=== PATIENT | male | born 1990 | race Caucasian/White ===

== ENCOUNTER 2016-10-14 12:04 | Inpatient (IN) | payer OTHER ==
[2016-10-14 14:22] VITALS: BMI 34.2
--- NOTE | 2016-10-14 15:32 | HP ---
COWS - Scale Resting Pulse: 0= [place] 80 or Below Sweatin=Flushed/Facial Moisture Restless Observation: 1= Difficult to Sit Still Pupil Size: 2= Moderately Dilated Bone or Joint Aches: 2= Severe Diffuse Aches Runny Nose/ Eye Tearin= Runny Nose/Eyes GI Upset > 30mins: 2= Nausea/Diarrhea Tremor Observation: 2= Slight Tremor Visible Yawning Observation: 1= 1-2x During Session Anxiety or Irritability: 2=Irritable/Anxious Goose Flesh Skin: 0=Smooth Skin COWS Score: 16 Admission ROS S - HPI Chief Complaint: WITHDRAWAL SX. Allergies/Adverse Reactions: Allergies Allergy/AdvReac Type Severity Reaction Status Date / Time Penicillins Allergy Severe Hives Verified 10/14/16 14:43 History of Present Illness: 26 Y/O MAN WITH A LONG HX. OF DRUG DEPENDENCE IS ADMITTED FOR DETOX.PT. HAS BEEN IN PREVIOUS DETOX FOLLOWED BY 10 MONTHS DRUG FREE,WHILE ATTENDING SELF HELP GROUP. Exam Limitations: No Limitations - Ebola screening Have you traveled outside of the country in the last 21 days: No (N) Have you had contact with anyone from an Ebola affected area: No Have you been sick,other than usual withdrawal symptoms: No Do you have a fever: No - Review of Systems Constitutional: Diaphoresis EENT: reports: Nose Congestion Respiratory: reports: No Symptoms reported Cardiac: reports: No Symptoms Reported GI: reports: Diarrhea, Abdominal cramping : reports: No Symptoms Reported Musculoskeletal: reports: Back Pain, Joint Pain Integumentary: reports: Sweating Neuro: reports: Headache Endocrine: reports: No Symptoms Reported Hematology: reports: No Symptoms Reported Psychiatric: reports: No Sypmtoms Reported Other Systems: Reviewed and Negative Patient History - Patient Medical History Hx Anemia: No Hx Asthma: No Hx Chronic Obstructive Pulmonary Disease (COPD): No Hx Cancer: No Hx Cardiac Disorders: No Hx Congestive Heart Failure: No Hx Hypertension: No Hx Hypercholesterolemia: No Hx Pacemaker: No HX Cerebrovascular Accident: No Hx Seizures: No Hx Dementia: No Hx Diabetes: No Hx Gastrointestinal Disorders: No Hx Liver Disease: No Hx Genitourinary Disorders: No Hx Sexually Transmitted Disorders: No Hx Renal Disease (ESRD): No Hx Thyroid Disease: No Hx Human Immunodeficiency Virus (HIV): No Hx Hepatitis C: No Hx Depression: No Hx Suicide Attempt: No Hx Bipolar Disorder: No Hx Schizophrenia: No - Patient Surgical History Past Surgical History: No Hx Neurologic Surgery: No Hx Cataract Extraction: No Hx Cardiac Surgery: No Hx Lung Surgery: No Hx Breast Surgery: No Hx Breast Biopsy: No Hx Abdominal Surgery: No Hx Appendectomy: No Hx Cholecystectomy: No Hx Genitourinary Surgery: No Hx Section: No Hx Orthopedic Surgery: No (fx. ankle CAST WAS APPLIED) Anesthesia Reaction: No - PPD History Previous Implant?: Yes Implanted On Prior [facility] Admission?: Yes Date: 10/25/15 PPD to be Administered?: Yes - Smoking Cessation Smoking history: Current every day smoker Have you smoked in the past 12 months: Yes Aproximately how many cigarettes per day: 8 Cigars Per Day: 0 Hx Chewing Tobacco Use: No Initiated information on smoking cessation: Yes 'Breaking Loose' booklet given: 10/14/16 - Substance & Tx. History Hx Alcohol Use: No Hx Substance Use: Yes Substance Use Type: Heroin Hx Substance Use Treatment: Yes (DETOX) - Substances Abused Heroin Route: Injection Frequency: Daily Amount used: $80 Age of first use: 23 Date of Last Use: 10/13/16 Family Disease History - Family Disease History Family Disease History: Heart Disease: Brother, [place]: Father (OF PROSTATE) Admission Physical Exam [facility] - Vital Signs Vital Signs: Vital Signs - 24 hr 10/14/16 14:21 Temperature 99.4 F Pulse Rate 66 Respiratory 20 Rate Blood Pressure 128/84 - Physical General Appearance: Yes: Sweating, Anxious HEENTM: Yes: Nasal Congestion, Rhinorrhea Respiratory: Yes: Chest Non-Tender, Lungs Clear, Normal Breath Sounds Neck: Yes: Supple Breast: Yes: Breast Exam Deferred Cardiology: Yes: Regular Rhythm, Regular Rate, S1, S2 Abdominal: Yes: Normal Bowel Sounds, Non Tender, Soft Genitourinary: Yes: Within Normal Limits Back: Yes: Within Normal Limits Musculoskeletal: Yes: Within Normal Limits Extremities: Yes: Tremors Neurological: Yes: Fully Oriented, Alert Integumentary: Yes: Diaphoresis Lymphatic: Yes: Within Normal Limits - Diagnostic (1) Opioid dependence with withdrawal Current Visit: Yes Status: Acute Cleared for Admission S - Detox or Rehab [facility] Level of Care: Medically Managed Detox Regimen/Protocol: Methadone S Breath Alcohol Content Breath Alcohol Content: 0 Urine Drug Screen - Results Drug Screen Negative: No Urine Drug Screen Results: OPI-Opiates
[2016-10-14] MEDS ORDERED: guaiFENesin/D-METHORPHAN HB 10 ML UNIT-DOSE CUPS PO PRN (15:38)
[2016-10-14] MEDS ORDERED: MAGNESIUM CITRATE 300 ML BOTTLE PO PRN (15:38)
[2016-10-14] MEDS ORDERED: diphenhydrAMINE HCL 50 MG CAPSULE PO PRN (15:38)
[2016-10-14] MEDS ORDERED: MAG HYDROX/AL HYDROX/SIMETH 30 ML UNIT-DOSE CUP PO PRN (15:38)
[2016-10-14] MEDS ORDERED: ACETAMINOPHEN 325 MG TABLET (FP) PO PRN (15:38)
[2016-10-14] MEDS ORDERED: LOPERAMIDE HCL 2 MG CAPSULE PO PRN (15:38)
[2016-10-14] MEDS ORDERED: NICOTINE POLACRILEX 2 MG GUM BC PRN (15:38)
[2016-10-14] MEDS ORDERED: MAGNESIUM HYDROX 2400MG/30ML ORAL SUSPENSION 30 ML CUP PO PRN (15:38)
[2016-10-14] MEDS ORDERED: MENTHOL/PHENOL 1 EACH UD MM PRN (15:38)
[2016-10-14] MEDS ORDERED: IBUPROFEN 400 MG TABLET (FP) PO PRN (15:38)
[2016-10-14] MEDS ORDERED: P-EPHED 60MG/TRIPROLIDI 2.5MG TABLET PO PRN (15:38)
[2016-10-14] MEDS ORDERED: METHADONE HCL 10 MG TABLET (FOR DETOX USE ONLY) PO ONE ×2 (16:00→23:00)
[2016-10-14] MEDS: diazePAM 5 MG TABLET PO PRN (18:17)
[2016-10-14] MEDS: NICOTINE 21 MG/24 HOURS TOPICAL PATCH TD SCH (18:20)
[2016-10-14] MEDS: THIAMINE HCL 100 MG TABLET (FP) PO SCH (22:24)
[2016-10-15] MEDS: diazePAM 5 MG TABLET PO PRN ×4 (05:21→18:46)
[2016-10-15] MEDS ORDERED: METHADONE HCL 10 MG TABLET (FOR DETOX USE ONLY) PO ONE (10:00)
[2016-10-15] MEDS: PRENATAL VITAMINS W/ FOLIC ACID TABLET (FP) PO SCH (10:17)
[2016-10-15] MEDS: NICOTINE 21 MG/24 HOURS TOPICAL PATCH TD SCH (10:18)
--- NOTE | 2016-10-15 10:19 | PN ---
BHS COWS - Scale Resting Pulse: 0= [place] 80 or Below Sweatin=Flushed/Facial Moisture Restless Observation: 3= Extraneous Movement Pupil Size: 1= Pupils >than Normal Bone or Joint Aches: 2= Severe Diffuse Aches Runny Nose/ Eye Tearin= Runny Nose/Eyes GI Upset > 30mins: 2= Nausea/Diarrhea Tremor Observation of Outstretched Hands: 2= Slight Tremor Visible Yawning Observation: 1= 1-2x During Session Anxiety or Irritability: 2=Irritable/Anxious Goose Flesh Skin: 0=Smooth Skin COWS Score: 17 BHS Progress Note (SOAP) Subjective: ALERT,IRRITABLE,ANXIOUS,TREMOR,PAIN IN THE BODY AND BACK,INTERRUPTED SLEEP Objective: 10/15/16 10:17 Vital Signs Temperature 97 F L 10/15/16 06:37 Pulse Rate 61 10/15/16 06:37 Respiratory Rate 16 10/15/16 06:37 Blood Pressure 128/87 10/15/16 06:37 O2 Sat by Pulse Oximetry (%) EKG NSR WITH SINUS ARRHYTHMIA NORMAL ECG LABS PENDING Assessment: 10/15/16 10:18 WITHDRAWAL SYMPTOM Plan: CONTINUE DETOX
[2016-10-15 11:05] LABS: MCH 28.5 pg (25.7-33.7); MCHC 33.7 g/dl (32.0-35.9); MEAN CELL VOLUME 84.6 fl (80-96); MEAN PLT VOLUME 9.7 fl (7.5-11.1); PLATELET COUNT 202 K/MM3 (134-434); RDW 14.7 % (11.9-15.9); WHITE BLOOD COUNT 6.4 K/mm3 (4.0-10.0)
[2016-10-15 11:41] LABS: ALBUMIN 3.5 g/dl (3.4-5.0); ALK PHOS 84 U/L (45-117); ANION GAP 6 (8-16); BILIRUBIN,TOTAL 0.8 mg/dL (0.2-1.0); CO2 28 mmol/L (21-32); CREATININE 0.9 mg/dL (0.7-1.3); GLUCOSE,RANDOM 89 mg/dL (74-106); SGOT/AST 11 U/L (15-37); SGPT/ALT 15 U/L (12-78); TOT PROT 7.5 g/dl (6.4-8.2)
[2016-10-15 11:43] LABS: HIV 1 & 2 AB NEGATIVE; HIV 1 AGp24 NEGATIVE
[2016-10-15] MEDS ORDERED: INFLUENZA VACCINE 45 MCG/0.5 ML (MDV 16-17) IM ONE (12:00)
--- NOTE | 2016-10-15 14:31 | CONSULT ---
[facility] Psychiatric Consult - Data Date of interview: 10/15/16 Admission source: [facility] Identifying data: Readmission to [facility] for this 26 y/o male seeking detox treatment on for heroin and cocaine dependence.Patient is single without children,domiciled and unemployed.Recently lost his job. Substance Abuse History: - Smoking Cessation. Smoking history: Current every day smoker. Have you smoked in the past 12 months: Yes. Aproximately how many cigarettes per day: 8. Cigars Per Day: 0. Hx Chewing Tobacco Use: No. Initiated information on smoking cessation: Yes. 'Breaking Loose' booklet given : 10/14/16. - Substance & Tx. History. Hx Alcohol Use: No. Hx Substance Use: Yes. Substance Use Type: Heroin. Hx Substance Use Treatment: Yes (DETOX). - Substances Abused. Heroin. Route: Injection. Frequency: Daily. Amount used: $80. Age of first use: 23. Date of Last Use: 10/13/16. Confirmed by patient. Medical History: Patient endorses good general health. Psychiatric History: Patient denies. Physical/Sexual Abuse/Trauma History: Patient denies. Additional Comment: Urine Drug Screen Results: OPI-Opiates.Noted. Mental Status Exam - Mental Status Exam Alert and Oriented to: Time, Place, Person Cognitive Function: Good Patient Appearance: Well Groomed Mood: Hopeful, Euthymic Affect: Appropriate, Normal Range Patient Behavior: Appropriate, Cooperative Speech Pattern: Clear Voice Loudness: Normal Thought Process: Goal Oriented Thought Disorder: Not Present Hallucinations: Denies Suicidal Ideation: Denies Homicidal Ideation: Denies Insight/Judgement: Fair Sleep: Poorly, Difficulty falling asleep Appetite: Good Muscle strength/Tone: Normal Gait/Station: Normal Psychiatric Findings - Problem List ([place] 1, 2,3) (1) Opioid dependence with withdrawal Current Visit: Yes Status: Acute (2) Obesity Current Visit: Yes Status: Chronic Qualifiers: Obesity type: unspecified obesity type Obesity severity: unspecified obesity severity Qualified Code(s): E66.9 - Obesity, unspecified (3) Insomnia Current Visit: Yes Status: Chronic - Initial Treatment Plan Initial Treatment Plan: Psychoeducation.Detoxification.Zolpidem 10 mg po hs prn.Patient is informed of risk of parasomnias.He agrees with plan.Observation.
[2016-10-15 21:49] LABS: URINE APPEARANCE SLCLOUDY; URINE BILIRUBIN NEGATIVE (NEGATIVE); URINE BLOOD NEGATIVE (NEGATIVE); URINE COLOR YELLOW; URINE GLUCOSE (UA) NEGATIVE (NEGATIVE); URINE KETONE NEGATIVE (NEGATIVE); URINE NITRITE NEGATIVE (NEGATIVE); URINE PROTEIN NEGATIVE (NEGATIVE); URINE UROBILINOGEN NEGATIVE E.U./dl (0.2-1.0)
[2016-10-15 21:51] LABS: URINE LEUK ESTERASE 1+ (NEGATIVE)
[2016-10-15 21:53] LABS: URINE MUCUS FEW; URINE RBC 4 /hpf (0-3); URINE WBC 12 /hpf (3-5)
[2016-10-15] MEDS: ZOLPIDEM TARTRATE 10 MG TABLET (PARK CARE ONLY) PO PRN (22:24)
[2016-10-15] MEDS: THIAMINE HCL 100 MG TABLET (FP) PO SCH (22:24)
[2016-10-16] MEDS ORDERED: METHADONE HCL 5 MG TABLET (FOR DETOX USE ONLY) PO ONE (10:00)
--- NOTE | 2016-10-16 10:01 | PN ---
S COWS - Scale Resting Pulse: 0= [place] 80 or Below Sweatin=Flushed/Facial Moisture Restless Observation: 3= Extraneous Movement Pupil Size: 1= Pupils >than Normal Bone or Joint Aches: 2= Severe Diffuse Aches Runny Nose/ Eye Tearin= Runny Nose/Eyes GI Upset > 30mins: 2= Nausea/Diarrhea Tremor Observation of Outstretched Hands: 2= Slight Tremor Visible Yawning Observation: 1= 1-2x During Session Anxiety or Irritability: 2=Irritable/Anxious Goose Flesh Skin: 0=Smooth Skin COWS Score: 17 BHS Progress Note (SOAP) Subjective: ALERT,IRRITABLE,ANXIOUS,PAIN IN THE BODY AND BACK,TREMOR,INTERRUPTED SLEEP Objective: 10/16/16 09:59 Vital Signs Temperature 98.2 F 10/16/16 09:34 Pulse Rate 79 10/16/16 09:34 Respiratory Rate 18 10/16/16 09:34 Blood Pressure 126/83 10/16/16 09:34 O2 Sat by Pulse Oximetry (%) Laboratory Last Values WBC 6.4 K/mm3 (4.0-10.0) D 10/15/16 06:30 RBC 4.28 M/mm3 (4.00-5.60) 10/15/16 06:30 Hgb 12.2 GM/dL (11.7-16.9) D 10/15/16 06:30 Hct 36.2 % (35.4-49) 10/15/16 06:30 MCV 84.6 fl (80-96) 10/15/16 06:30 MCHC 33.7 g/dl (32.0-35.9) 10/15/16 06:30 RDW 14.7 % (11.9-15.9) D 10/15/16 06:30 Plt Count 202 K/MM3 (134-434) 10/15/16 06:30 MPV 9.7 fl (7.5-11.1) 10/15/16 06:30 Sodium 142 mmol/L (136-145) 10/15/16 06:30 Potassium 4.3 mmol/L (3.5-5.1) 10/15/16 06:30 Chloride 108 mmol/L (98-107) H 10/15/16 06:30 Carbon Dioxide 28 mmol/L (21-32) 10/15/16 06:30 Anion Gap 6 (8-16) L 10/15/16 06:30 BUN 9 mg/dL (7-18) 10/15/16 06:30 Creatinine 0.9 mg/dL (0.7-1.3) 10/15/16 06:30 Creat Clearance w eGFR > 60 (>60) 10/15/16 06:30 Random Glucose 89 mg/dL (74-106) 10/15/16 06:30 Calcium 9.0 mg/dL (8.5-10.1) 10/15/16 06:30 Total Bilirubin 0.8 mg/dL (0.2-1.0) 10/15/16 06:30 AST 11 U/L (15-37) L D 10/15/16 06:30 ALT 15 U/L (12-78) D 10/15/16 06:30 Alkaline Phosphatase 84 U/L (45-117) 10/15/16 06:30 Total Protein 7.5 g/dl (6.4-8.2) 10/15/16 06:30 Albumin 3.5 g/dl (3.4-5.0) 10/15/16 06:30 Urine Color Yellow 10/15/16 21:39 Urine Appearance Slcloudy 10/15/16 21:39 Urine pH 5.0 (5.0-8.0) 10/15/16 21:39 Ur Specific [place] 1.017 (1.001-1.035) 10/15/16 21:39 Urine Protein Negative (NEGATIVE) 10/15/16 21:39 Urine Glucose (UA) Negative (NEGATIVE) 10/15/16 21:39 Urine Ketones Negative (NEGATIVE) 10/15/16 21:39 Urine Blood Negative (NEGATIVE) 10/15/16 21:39 Urine Nitrite Negative (NEGATIVE) 10/15/16 21:39 Urine Bilirubin Negative (NEGATIVE) 10/15/16 21:39 Urine Urobilinogen Negative E.U./dl (0.2-1.0) 10/15/16 21:39 Ur Leukocyte Esterase 1+ (NEGATIVE) H 10/15/16 21:39 Urine RBC 4 /hpf (0-3) 10/15/16 21:39 Urine WBC 12 /hpf (3-5) 10/15/16 21:39 Ur Epithelial Cells Rare /hpf (FEW) 10/15/16 21:39 Urine Mucus Few 10/15/16 21:39 RPR Titer Nonreactive (NONREACTIVE) 10/15/16 06:30 HIV 1&2 Antibody Screen Negative 10/14/16 06:30 HIV P24 Antigen Negative 10/14/16 06:30 Assessment: 10/16/16 10:00 WITHDRAWAL SYMPTOM Plan: CONTINUE DETOX
[2016-10-16] MEDS: diazePAM 5 MG TABLET PO PRN ×3 (10:24→22:22)
[2016-10-16] MEDS: PRENATAL VITAMINS W/ FOLIC ACID TABLET (FP) PO SCH (10:24)
[2016-10-16] MEDS: NICOTINE 21 MG/24 HOURS TOPICAL PATCH TD SCH (10:26)
[2016-10-16] MEDS: THIAMINE HCL 100 MG TABLET (FP) PO SCH (22:21)
[2016-10-16] MEDS: ZOLPIDEM TARTRATE 10 MG TABLET (PARK CARE ONLY) PO PRN (22:22)
[2016-10-17] MEDS: diazePAM 5 MG TABLET PO PRN ×3 (05:52→14:28)
--- NOTE | 2016-10-17 09:50 | PN ---
S Progress Note (SOAP) Subjective: ALERT,IRRITABLE,ANXIOUS,INTERRUPTED SLEEP,TREMOR,PAIN IN THE BODY AND BACK Objective: 10/17/16 09:48 Vital Signs Temperature 96.4 F L 10/17/16 09:40 Pulse Rate 76 10/17/16 09:40 Respiratory Rate 18 10/17/16 09:40 Blood Pressure 129/87 10/17/16 09:40 O2 Sat by Pulse Oximetry (%) 10/17/16 09:49 Laboratory Last Values WBC 6.4 K/mm3 (4.0-10.0) D 10/15/16 06:30 RBC 4.28 M/mm3 (4.00-5.60) 10/15/16 06:30 Hgb 12.2 GM/dL (11.7-16.9) D 10/15/16 06:30 Hct 36.2 % (35.4-49) 10/15/16 06:30 MCV 84.6 fl (80-96) 10/15/16 06:30 MCHC 33.7 g/dl (32.0-35.9) 10/15/16 06:30 RDW 14.7 % (11.9-15.9) D 10/15/16 06:30 Plt Count 202 K/MM3 (134-434) 10/15/16 06:30 MPV 9.7 fl (7.5-11.1) 10/15/16 06:30 Sodium 142 mmol/L (136-145) 10/15/16 06:30 Potassium 4.3 mmol/L (3.5-5.1) 10/15/16 06:30 Chloride 108 mmol/L (98-107) H 10/15/16 06:30 Carbon Dioxide 28 mmol/L (21-32) 10/15/16 06:30 Anion Gap 6 (8-16) L 10/15/16 06:30 BUN 9 mg/dL (7-18) 10/15/16 06:30 Creatinine 0.9 mg/dL (0.7-1.3) 10/15/16 06:30 Creat Clearance w eGFR > 60 (>60) 10/15/16 06:30 Random Glucose 89 mg/dL (74-106) 10/15/16 06:30 Calcium 9.0 mg/dL (8.5-10.1) 10/15/16 06:30 Total Bilirubin 0.8 mg/dL (0.2-1.0) 10/15/16 06:30 AST 11 U/L (15-37) L D 10/15/16 06:30 ALT 15 U/L (12-78) D 10/15/16 06:30 Alkaline Phosphatase 84 U/L (45-117) 10/15/16 06:30 Total Protein 7.5 g/dl (6.4-8.2) 10/15/16 06:30 Albumin 3.5 g/dl (3.4-5.0) 10/15/16 06:30 Urine Color Yellow 10/15/16 21:39 Urine Appearance Slcloudy 10/15/16 21:39 Urine pH 5.0 (5.0-8.0) 10/15/16 21:39 Ur Specific [place] 1.017 (1.001-1.035) 10/15/16 21:39 Urine Protein Negative (NEGATIVE) 10/15/16 21:39 Urine Glucose (UA) Negative (NEGATIVE) 10/15/16 21:39 Urine Ketones Negative (NEGATIVE) 10/15/16 21:39 Urine Blood Negative (NEGATIVE) 10/15/16 21:39 Urine Nitrite Negative (NEGATIVE) 10/15/16 21:39 Urine Bilirubin Negative (NEGATIVE) 10/15/16 21:39 Urine Urobilinogen Negative E.U./dl (0.2-1.0) 10/15/16 21:39 Ur Leukocyte Esterase 1+ (NEGATIVE) H 10/15/16 21:39 Urine RBC 4 /hpf (0-3) 10/15/16 21:39 Urine WBC 12 /hpf (3-5) 10/15/16 21:39 Ur Epithelial Cells Rare /hpf (FEW) 10/15/16 21:39 Urine Mucus Few 10/15/16 21:39 RPR Titer Nonreactive (NONREACTIVE) 10/15/16 06:30 HIV 1&2 Antibody Screen Negative 10/14/16 06:30 HIV P24 Antigen Negative 10/14/16 06:30 Assessment: 10/17/16 09:48 WITHDRAWAL SYMPTOM 10/17/16 09:49 Plan: CONTINUE DETOX
[2016-10-17] MEDS ORDERED: METHADONE HCL 5 MG TABLET (FOR DETOX USE ONLY) PO ONE (10:00)
[2016-10-17] MEDS: PRENATAL VITAMINS W/ FOLIC ACID TABLET (FP) PO SCH (10:19)
[2016-10-17] MEDS: NICOTINE 21 MG/24 HOURS TOPICAL PATCH TD SCH (10:20)
[2016-10-17] MEDS: ZOLPIDEM TARTRATE 10 MG TABLET (PARK CARE ONLY) PO PRN (22:18)
[2016-10-17] MEDS: THIAMINE HCL 100 MG TABLET (FP) PO SCH (22:18)
[2016-10-18 00:45] LABS: URINE APPEARANCE CLEAR; URINE BILIRUBIN NEGATIVE (NEGATIVE); URINE BLOOD NEGATIVE (NEGATIVE); URINE COLOR LTYELLOW; URINE GLUCOSE (UA) NEGATIVE (NEGATIVE); URINE KETONE NEGATIVE (NEGATIVE); URINE NITRITE NEGATIVE (NEGATIVE); URINE PROTEIN NEGATIVE (NEGATIVE); URINE UROBILINOGEN NEGATIVE E.U./dl (0.2-1.0)
[2016-10-18 00:56] LABS: URINE LEUK ESTERASE TRACE (NEGATIVE)
[2016-10-18 01:11] LABS: URINE MUCUS RARE; URINE RBC 1 /hpf (0-3); URINE WBC 7 /hpf (3-5)
[2016-10-18] MEDS: hydrOXYzine PAMOATE 50 MG CAPSULE (FP) PO PRN ×4 (06:00→18:50)
[2016-10-18] MEDS ORDERED: METHADONE HCL 10 MG TABLET (FOR DETOX USE ONLY) PO ONE (10:00)
--- NOTE | 2016-10-18 10:05 | PN ---
S Progress Note (SOAP) Subjective: alert,irritable,anxious,interrupted sleep Objective: 10/18/16 10:04 Vital Signs Temperature 97.7 F 10/18/16 09:45 Pulse Rate 79 10/18/16 09:45 Respiratory Rate 18 10/18/16 09:45 Blood Pressure 117/69 10/18/16 09:45 O2 Sat by Pulse Oximetry (%) Assessment: 10/18/16 10:04 withdrawal symptom Plan: continue detox,discharge in am
[2016-10-18] MEDS: NICOTINE 21 MG/24 HOURS TOPICAL PATCH TD SCH (10:17)
[2016-10-18] MEDS: PRENATAL VITAMINS W/ FOLIC ACID TABLET (FP) PO SCH (10:17)
[2016-10-18] MEDS ORDERED: ZOLPIDEM TARTRATE 5 MG TABLET PO PRN (22:00)
[2016-10-18] MEDS: THIAMINE HCL 100 MG TABLET (FP) PO SCH (22:21)
[2016-10-19] MEDS ORDERED: METHADONE HCL 5 MG TABLET (FOR DETOX USE ONLY) PO ONE (06:00)
[2016-10-19] MEDS: hydrOXYzine PAMOATE 50 MG CAPSULE (FP) PO PRN (06:14)
[2016-10-19 06:24] VITALS: BP 115/85; PULSE 89; TEMP 96.6
--- NOTE | 2016-10-19 10:56 | DS ---
[facility] Detox Discharge Summary Admission Date: 10/14/16 Discharge Date: 10/19/16 - History Present History: Opioid Dependence Pertinent Past History: Obesity Insomia - Physical Exam Results Vital Signs: Vital Signs Temperature 96.6 F L 10/19/16 06:24 Pulse Rate 89 10/19/16 06:24 Respiratory Rate 18 10/19/16 06:24 Blood Pressure 115/85 10/19/16 06:24 O2 Sat by Pulse Oximetry (%) Pertinent Admission Physical Exam Findings: withdrawal symptoms Laboratory Last Values WBC 6.4 K/mm3 (4.0-10.0) D 10/15/16 06:30 RBC 4.28 M/mm3 (4.00-5.60) 10/15/16 06:30 Hgb 12.2 GM/dL (11.7-16.9) D 10/15/16 06:30 Hct 36.2 % (35.4-49) 10/15/16 06:30 MCV 84.6 fl (80-96) 10/15/16 06:30 MCHC 33.7 g/dl (32.0-35.9) 10/15/16 06:30 RDW 14.7 % (11.9-15.9) D 10/15/16 06:30 Plt Count 202 K/MM3 (134-434) 10/15/16 06:30 MPV 9.7 fl (7.5-11.1) 10/15/16 06:30 Sodium 142 mmol/L (136-145) 10/15/16 06:30 Potassium 4.3 mmol/L (3.5-5.1) 10/15/16 06:30 Chloride 108 mmol/L (98-107) H 10/15/16 06:30 Carbon Dioxide 28 mmol/L (21-32) 10/15/16 06:30 Anion Gap 6 (8-16) L 10/15/16 06:30 BUN 9 mg/dL (7-18) 10/15/16 06:30 Creatinine 0.9 mg/dL (0.7-1.3) 10/15/16 06:30 Creat Clearance w eGFR > 60 (>60) 10/15/16 06:30 Random Glucose 89 mg/dL (74-106) 10/15/16 06:30 Calcium 9.0 mg/dL (8.5-10.1) 10/15/16 06:30 Total Bilirubin 0.8 mg/dL (0.2-1.0) 10/15/16 06:30 AST 11 U/L (15-37) L D 10/15/16 06:30 ALT 15 U/L (12-78) D 10/15/16 06:30 Alkaline Phosphatase 84 U/L (45-117) 10/15/16 06:30 Total Protein 7.5 g/dl (6.4-8.2) 10/15/16 06:30 Albumin 3.5 g/dl (3.4-5.0) 10/15/16 06:30 Urine Color Ltyellow 10/18/16 00:30 Urine Appearance Clear 10/18/16 00:30 Urine pH 6.0 (5.0-8.0) 10/18/16 00:30 Ur Specific [place] 1.008 (1.001-1.035) 10/18/16 00:30 Urine Protein Negative (NEGATIVE) 10/18/16 00:30 Urine Glucose (UA) Negative (NEGATIVE) 10/18/16 00:30 Urine Ketones Negative (NEGATIVE) 10/18/16 00:30 Urine Blood Negative (NEGATIVE) 10/18/16 00:30 Urine Nitrite Negative (NEGATIVE) 10/18/16 00:30 Urine Bilirubin Negative (NEGATIVE) 10/18/16 00:30 Urine Urobilinogen Negative E.U./dl (0.2-1.0) 10/18/16 00:30 Ur Leukocyte Esterase Trace (NEGATIVE) H 10/18/16 00:30 Urine RBC 1 /hpf (0-3) 10/18/16 00:30 Urine WBC 7 /hpf (3-5) 10/18/16 00:30 Ur Epithelial Cells Rare /hpf (FEW) 10/18/16 00:30 Urine Mucus Rare 10/18/16 00:30 RPR Titer Nonreactive (NONREACTIVE) 10/15/16 06:30 HIV 1&2 Antibody Screen Negative 10/14/16 06:30 HIV P24 Antigen Negative 10/14/16 06:30 labs noted - Treatment Hospital Course: Detox Protocol Followed, Detoxed Safely, Responded well, Discharged Condition Good, Rehab Referral Accepted - Medication Discharge Medications: Ambulatory Orders NK [No Known Home Medication] 10/23/15 - Diagnosis (1) Opioid dependence with withdrawal Status: Acute (2) Insomnia Status: Chronic (3) Obesity Status: Chronic Qualifiers: Obesity type: unspecified obesity type Obesity severity: unspecified obesity severity Qualified Code(s): E66.9 - Obesity, unspecified - AMA Did Patient Leave Against Medical Advice: No
== END 2016-10-19 09:20 | disposition home or self-care (01) | DRG 897 ==
LOC: YASAS 12:04 → Y3N 15:14
PROVIDERS: ADMIT Internal Medicine; ATTEND Internal Medicine
PROC: HZ2ZZZZ Detoxification Services for Substance Abuse Treatment (ICD-10-PCS; principal; 2016-10-14)
DX: F11.23 Opioid dependence with withdrawal (principal); F17.210 Nicotine dependence, cigarettes, uncomplicated; G47.00 Insomnia, unspecified; E66.9 Obesity, unspecified; Z68.34 Body mass index [BMI] 34.0-34.9, adult
CPT/HCPCS: 36415; 80053; 81003; 81015; 85027; 86593; 87389; 93005; 93010

== ENCOUNTER 2017-04-23 08:27 | Inpatient (IN) | payer OTHER ==
[2017-04-23 09:15] VITALS: BMI 33.0
--- NOTE | 2017-04-23 09:49 | HP ---
COWS - Scale Resting Pulse: 0= [place] 80 or Below Sweatin=Flushed/Facial Moisture Restless Observation: 3= Extraneous Movement Pupil Size: 2= Moderately Dilated Bone or Joint Aches: 2= Severe Diffuse Aches Runny Nose/ Eye Tearin= Runny Nose/Eyes GI Upset > 30mins: 3= Vomiting/Diarrhea Tremor Observation: 2= Slight Tremor Visible Yawning Observation: 2= >3x During Session Anxiety or Irritability: 2=Irritable/Anxious Goose Flesh Skin: 0=Smooth Skin COWS Score: 20 Admission ROS BHS - HPI Chief Complaint: i am here for detox from heroin and also like to got to rehab after detox Allergies/Adverse Reactions: Allergies Allergy/AdvReac Type Severity Reaction Status Date / Time Penicillins Allergy Severe Hives Verified 04/23/17 09:58 History of Present Illness: this 26 years old male with heroin and cocaine dependence,seeking help to stop, last detox [facility] 10/14/16 to 10/19/16 nicotine dependence several admissions in the past keep relapsing longest period of sobriety 10 months plan to go to rehab after Exam Limitations: No Limitations - Ebola screening Have you traveled outside of the country in the last 21 days: No Have you had contact with anyone from an Ebola affected area: No Have you been sick,other than usual withdrawal symptoms: No - Review of Systems Constitutional: Chills, Diaphoresis, Loss of Appetite, Malaise, Night Sweats, Changes in sleep, Weakness EENT: reports: Tearing, Nose Congestion Respiratory: reports: No Symptoms reported Cardiac: reports: Palpitations GI: reports: Diarrhea, Nausea, Vomiting, Abdominal cramping : reports: No Symptoms Reported Musculoskeletal: reports: Back Pain, Joint Pain, Muscle Pain, Joint Stiffness Integumentary: reports: Dryness Neuro: reports: Headache, Tremors Endocrine: reports: No Symptoms Reported Hematology: reports: No Symptoms Reported Psychiatric: reports: No Sypmtoms Reported Patient History - Patient Medical History Hx Anemia: No Hx Asthma: No Hx Chronic Obstructive Pulmonary Disease (COPD): No Hx Cancer: No Hx Cardiac Disorders: No Hx Congestive Heart Failure: No Hx Hypertension: No Hx Hypercholesterolemia: No Hx Pacemaker: No HX Cerebrovascular Accident: No Hx Seizures: No Hx Dementia: No Hx Diabetes: No Hx Gastrointestinal Disorders: No Hx Liver Disease: No Hx Genitourinary Disorders: No Hx Sexually Transmitted Disorders: No Hx Renal Disease (ESRD): No Hx Thyroid Disease: No Hx Human Immunodeficiency Virus (HIV): No (last 10/29 negative) Hx Hepatitis C: No Hx Depression: No Hx Suicide Attempt: No Hx Bipolar Disorder: No Hx Schizophrenia: No Other Medical History: no suicidal,no homicidal - Patient Surgical History Past Surgical History: No Hx Neurologic Surgery: No Hx Cataract Extraction: No Hx Cardiac Surgery: No Hx Lung Surgery: No Hx Breast Surgery: No Hx Breast Biopsy: No Hx Abdominal Surgery: No Hx Appendectomy: No Hx Cholecystectomy: No Hx Genitourinary Surgery: No Hx Section: No Hx Orthopedic Surgery: No (fx. ankle CAST WAS APPLIED at age 13 years) Anesthesia Reaction: No - PPD History Previous Implant?: Yes Documented Results: Negative w/proof Implanted On Prior [facility] Admission?: Yes Date: 10/16/16 Results: 0 mm PPD to be Administered?: No - Smoking Cessation Smoking history: Current every day smoker Have you smoked in the past 12 months: Yes Aproximately how many cigarettes per day: 10 Cigars Per Day: 0 Hx Chewing Tobacco Use: No Initiated information on smoking cessation: Yes 'Breaking Loose' booklet given: 04/23/17 - Substance & Tx. History Hx Alcohol Use: No Hx Substance Use: Yes Substance Use Type: Cocaine, Heroin Hx Substance Use Treatment: Yes ([facility] 10/14/16 to 10/19/16) - Substances Abused Heroin Route: Injection Frequency: Daily Amount used: 5 to 9 bgas Age of first use: 22 Date of Last Use: 04/22/17 Cocaine Route: Injection Frequency: 1-3 times last 30 days Amount used: 80$ Age of first use: 24 Date of Last Use: 02/10/17 Family Disease History - Family Disease History Family Disease History: [place]: Father (OF PROSTATE), Other: Brother (dsa) Admission Physical Exam S - Vital Signs Vital Signs: Vital Signs - 24 hr 04/23/17 09:13 Temperature 98.4 F Pulse Rate 77 Respiratory 20 Rate Blood Pressure 129/80 - Physical General Appearance: Yes: Moderate Distress, Obese, Tremorous, Irritable, Sweating, Anxious HEENTM: Yes: Normal ENT Inspection, HESHAM, Pharynx Normal, Nasal Congestion Respiratory: Yes: Lungs Clear, Normal Breath Sounds, No Respiratory Distress Neck: Yes: Within Normal Limits, Supple, Trachea in good position Breast: Yes: Within Normal Limits Cardiology: Yes: Within Normal Limits, Regular Rhythm, Regular Rate, S1, S2 Abdominal: Yes: Within Normal Limits, Normal Bowel Sounds, Non Tender, Flat, Soft Genitourinary: Yes: Within Normal Limits Back: Yes: Normal Inspection, Muscle Spasm Musculoskeletal: Yes: full range of Motion, Back pain, Joint Stiffness, Muscle Pain Extremities: Yes: Normal Range of Motion, Tremors 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 NML intact, Fully Oriented, Alert, Motor Strength 5/5, Normal Mood/Affect Integumentary: Yes: Dry, Track [place]es Lymphatic: Yes: Within Normal Limits - Diagnostic (1) Opioid dependence with withdrawal Current Visit: Yes Status: Acute (2) Insomnia Current Visit: No Status: Chronic (3) Obesity Current Visit: No Status: Chronic Qualifiers: Obesity type: unspecified obesity type Cleared for Admission [facility] - Detox or Rehab [facility] Level of Care: Medically Managed Detox Regimen/Protocol: Methadone S Breath Alcohol Content Breath Alcohol Content: 0 Urine Drug Screen - Results Drug Screen Negative: No Urine Drug Screen Results: OPI-Opiates
[2017-04-23] MEDS ORDERED: MENTHOL/PHENOL 1 EACH UD MM PRN (10:01)
[2017-04-23] MEDS ORDERED: ACETAMINOPHEN 325 MG TABLET (FP) PO PRN (10:01)
[2017-04-23] MEDS ORDERED: P-EPHED 60MG/TRIPROLIDI 2.5MG TABLET PO PRN (10:01)
[2017-04-23] MEDS ORDERED: MAGNESIUM HYDROX 2400MG/30ML ORAL SUSPENSION 30 ML CUP PO PRN (10:01)
[2017-04-23] MEDS ORDERED: LOPERAMIDE HCL 2 MG CAPSULE PO PRN (10:01)
[2017-04-23] MEDS ORDERED: guaiFENesin/D-METHORPHAN HB 10 ML UNIT-DOSE CUPS PO PRN (10:01)
[2017-04-23] MEDS ORDERED: IBUPROFEN 400 MG TABLET (FP) PO PRN (10:01)
[2017-04-23] MEDS ORDERED: MAGNESIUM CITRATE 300 ML BOTTLE PO PRN (10:01)
[2017-04-23] MEDS ORDERED: MAG HYDROX/AL HYDROX/SIMETH 30 ML UNIT-DOSE CUP PO PRN (10:01)
[2017-04-23] MEDS ORDERED: METHADONE HCL 10 MG TABLET (FOR DETOX USE ONLY) PO ONE ×2 (10:15→23:00)
[2017-04-23] MEDS: NICOTINE 21 MG/24 HOURS TOPICAL PATCH TD SCH (11:03)
[2017-04-23] MEDS: diazePAM 5 MG TABLET PO PRN ×3 (11:04→19:35)
--- NOTE | 2017-04-23 13:01 | EKG ---
Test Reason : Blood Pressure : / mmHG Vent. Rate : 074 BPM Atrial Rate : 074 BPM P-R Int : 154 ms QRS Dur : 094 ms QT Int : 410 ms P-R-T Axes : 056 032 022 degrees QTc Int : 455 ms NORMAL SINUS RHYTHM NORMAL ECG NO PREVIOUS ECGS AVAILABLE Confirmed by CARRIE MUSTAFA, GINA ([id number]) on 04/23/2017 1:01:43 PM Referred By: Confirmed By:GINA BUTLER MD
[2017-04-23 14:50] LABS: URINE APPEARANCE SLCLOUDY; URINE BILIRUBIN NEGATIVE (NEGATIVE); URINE BLOOD NEGATIVE (NEGATIVE); URINE COLOR AMBER; URINE GLUCOSE (UA) NEGATIVE (NEGATIVE); URINE KETONE NEGATIVE (NEGATIVE); URINE NITRITE NEGATIVE (NEGATIVE); URINE UROBILINOGEN NEGATIVE E.U./dl (0.2-1.0)
[2017-04-23 14:55] LABS: URINE LEUK ESTERASE 2+ (NEGATIVE); URINE PROTEIN 1+ (NEGATIVE)
[2017-04-23 15:06] LABS: URINE HYALINE CAST 174 /lpf; URINE MUCUS MANY; URINE RBC 7 /hpf (0-3); URINE WBC 44 /hpf (3-5)
--- NOTE | 2017-04-23 15:59 | CONSULT ---
[facility] Psychiatric Consult - Data Date of interview: 04/23/17 Admission source: [facility] Identifying data: Third admission to [facility] for this 26 y/o male seeking detoxification treatment on for heroin and cocaine dependence.Patient is single without children,domiciled and unemployed. Substance Abuse History: Patient reports use of heroin intravenously on a daily basis (3-5 bags).Last use on 04/20/17.Cocaine is also reported as being used sporadically," once in a while ",via the intravenous route.Last use was 5 months ago (80 dollars on a single occasion).Mr Brown indicates that he smokes 1 /2 pack of cigarettes on a daily basis. Medical History: Patient denies medical problems.Reported allergy to penicillin. Psychiatric History: Patient denies. Physical/Sexual Abuse/Trauma History: Patient denies. Additional Comment: Urine Drug Screen Results: positive for opiates. Mental Status Exam - Mental Status Exam Alert and Oriented to: Time, Place, Person Cognitive Function: Good Patient Appearance: Well Groomed Mood: Anxious, Apprehensive Affect: Mood Congruent Patient Behavior: Fatigued, Appropriate (well-mannered), Cooperative Speech Pattern: Clear, Appropriate Voice Loudness: Normal Thought Process: Goal Oriented Thought Disorder: Not Present Hallucinations: Denies Suicidal Ideation: Denies Homicidal Ideation: Denies Insight/Judgement: Poor Sleep: Fair Appetite: Good Muscle strength/Tone: Normal Gait/Station: Normal Psychiatric Findings - Problem List ([place] 1, 2,3) (1) Opioid dependence with withdrawal Current Visit: Yes Status: Acute (2) Cocaine abuse Current Visit: Yes Status: Chronic Comment: History.Current Utox screen is negative for cocaine. (3) Obesity Current Visit: No Status: Chronic Qualifiers: Obesity type: unspecified obesity type - Initial Treatment Plan Initial Treatment Plan: Psychoeducation is provided at this session.Previous records are reviewed.[facility] report is read and appreciated.Insomnia is addressed with benadryl 50 mg po hs at bedtime (prn).Side effects/benefits discussed.Patient is in agreement with this careplan.Observation.
[2017-04-23] MEDS: THIAMINE HCL 100 MG TABLET (FP) PO SCH (22:11)
[2017-04-23] MEDS: diphenhydrAMINE HCL 50 MG CAPSULE PO PRN (22:12)
[2017-04-23] MEDS: cloNIDine HCL 0.1 MG TABLET PO SCH (22:12)
[2017-04-24 09:59] LABS: MCH 28.3 pg (25.7-33.7); MCHC 33.4 g/dl (32.0-35.9); MEAN CELL VOLUME 84.7 fl (80-96); MEAN PLT VOLUME 10.3 fl (7.5-11.1); PLATELET COUNT 207 K/MM3 (134-434); RDW 13.7 % (11.9-15.9); WHITE BLOOD COUNT 13.9 K/mm3 (4.0-10.0)
[2017-04-24] MEDS ORDERED: METHADONE HCL 10 MG TABLET (FOR DETOX USE ONLY) PO ONE (10:00)
[2017-04-24] MEDS: PRENATAL VITAMINS W/ FOLIC ACID TABLET (FP) PO SCH (10:01)
[2017-04-24] MEDS: cloNIDine HCL 0.1 MG TABLET PO SCH ×2 (10:01→22:07)
[2017-04-24] MEDS: CYCLOBENZAPRINE HCL 10 MG TABLET (FP) PO PRN (10:01)
[2017-04-24] MEDS: NICOTINE 21 MG/24 HOURS TOPICAL PATCH TD SCH (10:02)
[2017-04-24 10:21] LABS: ALBUMIN 3.7 g/dl (3.4-5.0); ALK PHOS 91 U/L (45-117); ANION GAP 7 (8-16); BILIRUBIN,TOTAL 1.3 mg/dL (0.2-1.0); CALCIUM 8.8 mg/dL (8.5-10.1); CO2 28 mmol/L (21-32); CREATININE 1.3 mg/dL (0.7-1.3); GLUCOSE,RANDOM 90 mg/dL (74-106); SGOT/AST 11 U/L (15-37); SGPT/ALT 21 U/L (12-78); TOT PROT 8.5 g/dl (6.4-8.2)
--- NOTE | 2017-04-24 11:20 | PN ---
S COWS - Scale Resting Pulse: 0= [place] 80 or Below Sweatin= Chills/Flushing Restless Observation: 1= Difficult to Sit Still Pupil Size: 0= Normal to Room Light Bone or Joint Aches: 2= Severe Diffuse Aches Runny Nose/ Eye Tearin= Nasal Congestion GI Upset > 30mins: 1= Stomach Cramp Tremor Observation of Outstretched Hands: 2= Slight Tremor Visible Yawning Observation: 1= 1-2x During Session Anxiety or Irritability: 2=Irritable/Anxious Goose Flesh Skin: 3=Piloerection COWS Score: 14 S Progress Note (SOAP) Subjective: Tremors, Interrupted sleep, Stomach Cramping, Constipation, Body Aches, Lower Back Ache. Objective: PT. A & O X 3. NO ACUTE DISTRESS. 04/24/17 11:15 Vital Signs Temperature 97.8 F 04/24/17 09:39 Pulse Rate 62 04/24/17 09:39 Respiratory Rate 18 04/24/17 09:39 Blood Pressure 102/71 04/24/17 09:39 O2 Sat by Pulse Oximetry (%) Laboratory Tests 04/23/17 04/24/17 04/24/17 12:00 06:00 06:00 WBC 13.9 H D RBC 4.56 Hgb 12.9 Hct 38.6 MCV 84.7 MCH 28.3 MCHC 33.4 RDW 13.7 Plt Count 207 MPV 10.3 Sodium 137 Potassium 3.8 Chloride 102 Carbon Dioxide 28 Anion Gap 7 L BUN 17 D Creatinine 1.3 D Creat Clearance w eGFR > 60 Random Glucose 90 Calcium 8.8 Total Bilirubin 1.3 H D AST 11 L ALT 21 D Alkaline Phosphatase 91 Total Protein 8.5 H Albumin 3.7 Urine Color Katerin Urine Appearance Slcloudy Urine pH 5.0 Ur Specific [place] 1.020 Urine Protein 1+ H Urine Glucose (UA) Negative Urine Ketones Negative Urine Blood Negative Urine Nitrite Negative Urine Bilirubin Negative Urine Urobilinogen Negative Ur Leukocyte Esterase 2+ H D Urine RBC 7 Urine WBC 44 Ur Epithelial Cells Few Hyaline Casts 174 Urine Mucus Many LABS NOTED. Assessment: 04/24/17 11:16 WITHDRAWAL SYMPTOMS. Plan: CONTINUE DETOX. REPEAT UA FOR ADMISSION UA ABNORMALITIES. INCREASE PO FLUID INTAKE.
[2017-04-24] MEDS: diazePAM 5 MG TABLET PO PRN ×2 (14:03→18:24)
[2017-04-24] MEDS: THIAMINE HCL 100 MG TABLET (FP) PO SCH (22:07)
[2017-04-24] MEDS: diphenhydrAMINE HCL 50 MG CAPSULE PO PRN (22:07)
[2017-04-24 22:38] LABS: URINE APPEARANCE CLEAR; URINE BILIRUBIN NEGATIVE (NEGATIVE); URINE BLOOD NEGATIVE (NEGATIVE); URINE COLOR STRAW; URINE GLUCOSE (UA) NEGATIVE (NEGATIVE); URINE KETONE NEGATIVE (NEGATIVE); URINE LEUK ESTERASE NEGATIVE (NEGATIVE); URINE NITRITE NEGATIVE (NEGATIVE); URINE PROTEIN NEGATIVE (NEGATIVE); URINE UROBILINOGEN NEGATIVE mg/dL (0.2-1.0)
[2017-04-25] MEDS ORDERED: WITCH HAZEL 50% (TUCKS) 40 PAD/JAR PAD TP PRN (09:40)
[2017-04-25] MEDS ORDERED: METHADONE HCL 5 MG TABLET (FOR DETOX USE ONLY) PO ONE (10:00)
[2017-04-25] MEDS: PRENATAL VITAMINS W/ FOLIC ACID TABLET (FP) PO SCH (10:10)
[2017-04-25] MEDS: cloNIDine HCL 0.1 MG TABLET PO SCH ×2 (10:10→22:09)
[2017-04-25] MEDS: NICOTINE 21 MG/24 HOURS TOPICAL PATCH TD SCH (10:10)
[2017-04-25] MEDS: diazePAM 5 MG TABLET PO PRN ×4 (10:10→23:36)
[2017-04-25] MEDS: DOCUSATE SODIUM 100 MG CAPSULE (FP) PO SCH ×2 (10:12→22:09)
[2017-04-25] MEDS: CYCLOBENZAPRINE HCL 10 MG TABLET (FP) PO PRN ×2 (10:12→22:09)
--- NOTE | 2017-04-25 10:33 | PN ---
[facility] COWS - Scale Resting Pulse: 0= [place] 80 or Below Sweatin=Flushed/Facial Moisture Restless Observation: 1= Difficult to Sit Still Pupil Size: 0= Normal to Room Light Bone or Joint Aches: 2= Severe Diffuse Aches Runny Nose/ Eye Tearin= Nasal Congestion GI Upset > 30mins: 1= Stomach Cramp Tremor Observation of Outstretched Hands: 2= Slight Tremor Visible Yawning Observation: 1= 1-2x During Session Anxiety or Irritability: 2=Irritable/Anxious Goose Flesh Skin: 3=Piloerection COWS Score: 15 BHS Progress Note (SOAP) Subjective: Tremors, Anxious, Constipation, Body Aches, Lower Back Ache. Objective: PT. A & O X 3, OBSERVED AMBULATING ON UNIT. NO ACUTE DISTRESS. 04/25/17 10:30 Vital Signs Temperature 98.1 F 04/25/17 10:22 Pulse Rate 75 04/25/17 10:22 Respiratory Rate 18 04/25/17 10:22 Blood Pressure 112/73 04/25/17 10:22 O2 Sat by Pulse Oximetry (%) Laboratory Tests 04/23/17 04/24/17 04/24/17 12:00 06:00 06:00 WBC 13.9 H D RBC 4.56 Hgb 12.9 Hct 38.6 MCV 84.7 MCH 28.3 MCHC 33.4 RDW 13.7 Plt Count 207 MPV 10.3 Sodium 137 Potassium 3.8 Chloride 102 Carbon Dioxide 28 Anion Gap 7 L BUN 17 D Creatinine 1.3 D Creat Clearance w eGFR > 60 Random Glucose 90 Calcium 8.8 Total Bilirubin 1.3 H D AST 11 L ALT 21 D Alkaline Phosphatase 91 Total Protein 8.5 H Albumin 3.7 Urine Color Katerin Urine Appearance Slcloudy Urine pH 5.0 Ur Specific [place] 1.020 Urine Protein 1+ H Urine Glucose (UA) Negative Urine Ketones Negative Urine Blood Negative Urine Nitrite Negative Urine Bilirubin Negative Urine Urobilinogen Negative Ur Leukocyte Esterase 2+ H D Urine RBC 7 Urine WBC 44 Ur Epithelial Cells Few Hyaline Casts 174 Urine Mucus Many RPR Titer 04/24/17 04/24/17 06:00 22:00 WBC RBC Hgb Hct MCV MCH MCHC RDW Plt Count MPV Sodium Potassium Chloride Carbon Dioxide Anion Gap BUN Creatinine Creat Clearance w eGFR Random Glucose Calcium Total Bilirubin AST ALT Alkaline Phosphatase Total Protein Albumin Urine Color Straw Urine Appearance Clear Urine pH 6.0 Ur Specific [place] <= 1.005 Urine Protein Negative Urine Glucose (UA) Negative Urine Ketones Negative Urine Blood Negative Urine Nitrite Negative Urine Bilirubin Negative Urine Urobilinogen Negative Ur Leukocyte Esterase Negative Urine RBC Urine WBC Ur Epithelial Cells Hyaline Casts Urine Mucus RPR Titer Nonreactive LABS NOTED. RESULTS OF REPEAT UA NOTED. URINE C & S RESULT PENDING. PATIENT RECENT SLIGHTLY INCREASED VOLUME WHEN URINATING, BUT DENIES ANY OTHER UNUSUAL URINARY SYMPTOMS (BURNING, PAIN, FREQUENCY). 04/25/17 10:32 04/25/17 12:37 Assessment: 04/25/17 10:31 WITHDRAWAL SYMPTOMS. Plan: CONTINUE DETOX. INCREASE PO FLUID INTAKE.
[2017-04-25] MEDS: THIAMINE HCL 100 MG TABLET (FP) PO SCH (22:09)
[2017-04-25] MEDS: diphenhydrAMINE HCL 50 MG CAPSULE PO PRN (22:09)
[2017-04-26] MEDS ORDERED: METHADONE HCL 5 MG TABLET (FOR DETOX USE ONLY) PO ONE (10:00)
[2017-04-26] MEDS: NICOTINE 21 MG/24 HOURS TOPICAL PATCH TD SCH (10:04)
[2017-04-26] MEDS: DOCUSATE SODIUM 100 MG CAPSULE (FP) PO SCH ×2 (10:04→22:02)
[2017-04-26] MEDS: PRENATAL VITAMINS W/ FOLIC ACID TABLET (FP) PO SCH (10:04)
[2017-04-26] MEDS: cloNIDine HCL 0.1 MG TABLET PO SCH ×2 (10:04→22:02)
[2017-04-26] MEDS: CYCLOBENZAPRINE HCL 10 MG TABLET (FP) PO PRN ×2 (10:07→22:03)
[2017-04-26] MEDS: hydrOXYzine PAMOATE 50 MG CAPSULE (FP) PO PRN ×3 (10:07→22:03)
--- NOTE | 2017-04-26 11:52 | PN ---
BHS Progress Note (SOAP) Subjective: Tremors, Anxious. Objective: PT. A & O X 3, OBSERVED AMBULATING ON UNIT. NO ACUTE DISTRESS. PATIENT DENIES CHEST PAIN. PT. DENIES ANY UNUSUAL URINARY SYMPTOMS (BURNING, PAIN, FREQUENCY) AT THIS TIME. 04/26/17 11:47 Vital Signs Temperature 96.9 F L 04/26/17 09:10 Pulse Rate 70 04/26/17 09:10 Respiratory Rate 18 04/26/17 09:10 Blood Pressure 107/75 04/26/17 09:10 O2 Sat by Pulse Oximetry (%) Laboratory Tests 04/23/17 04/24/17 04/24/17 12:00 06:00 06:00 WBC 13.9 H D RBC 4.56 Hgb 12.9 Hct 38.6 MCV 84.7 MCH 28.3 MCHC 33.4 RDW 13.7 Plt Count 207 MPV 10.3 Sodium 137 Potassium 3.8 Chloride 102 Carbon Dioxide 28 Anion Gap 7 L BUN 17 D Creatinine 1.3 D Creat Clearance w eGFR > 60 Random Glucose 90 Calcium 8.8 Total Bilirubin 1.3 H D AST 11 L ALT 21 D Alkaline Phosphatase 91 Total Protein 8.5 H Albumin 3.7 Urine Color Katerin Urine Appearance Slcloudy Urine pH 5.0 Ur Specific [place] 1.020 Urine Protein 1+ H Urine Glucose (UA) Negative Urine Ketones Negative Urine Blood Negative Urine Nitrite Negative Urine Bilirubin Negative Urine Urobilinogen Negative Ur Leukocyte Esterase 2+ H D Urine RBC 7 Urine WBC 44 Ur Epithelial Cells Few Hyaline Casts 174 Urine Mucus Many RPR Titer 04/24/17 04/24/17 06:00 22:00 WBC RBC Hgb Hct MCV MCH MCHC RDW Plt Count MPV Sodium Potassium Chloride Carbon Dioxide Anion Gap BUN Creatinine Creat Clearance w eGFR Random Glucose Calcium Total Bilirubin AST ALT Alkaline Phosphatase Total Protein Albumin Urine Color Straw Urine Appearance Clear Urine pH 6.0 Ur Specific [place] <= 1.005 Urine Protein Negative Urine Glucose (UA) Negative Urine Ketones Negative Urine Blood Negative Urine Nitrite Negative Urine Bilirubin Negative Urine Urobilinogen Negative Ur Leukocyte Esterase Negative Urine RBC Urine WBC Ur Epithelial Cells Hyaline Casts Urine Mucus RPR Titer Nonreactive LABS NOTED. RESULT OF URINE C & S FROM 04/24/2017 NOTED. 04/26/17 11:50 Assessment: 04/26/17 11:48 WITHDRAWAL SYMPTOMS. Plan: CONTINUE DETOX.
[2017-04-26] MEDS: THIAMINE HCL 100 MG TABLET (FP) PO SCH (22:02)
[2017-04-27] MEDS ORDERED: METHADONE HCL 10 MG TABLET (FOR DETOX USE ONLY) PO ONE (10:00)
[2017-04-27] MEDS: hydrOXYzine PAMOATE 50 MG CAPSULE (FP) PO PRN ×4 (10:02→22:04)
[2017-04-27] MEDS: DOCUSATE SODIUM 100 MG CAPSULE (FP) PO SCH ×2 (10:02→22:03)
[2017-04-27] MEDS: CYCLOBENZAPRINE HCL 10 MG TABLET (FP) PO PRN ×2 (10:02→17:54)
[2017-04-27] MEDS: NICOTINE 21 MG/24 HOURS TOPICAL PATCH TD SCH (10:02)
[2017-04-27] MEDS: PRENATAL VITAMINS W/ FOLIC ACID TABLET (FP) PO SCH (10:03)
[2017-04-27] MEDS: cloNIDine HCL 0.1 MG TABLET PO SCH ×2 (10:03→22:03)
--- NOTE | 2017-04-27 14:35 | PN ---
S Progress Note (SOAP) Subjective: Sweating, anxious, interrupted sleep, constipation Objective: 04/27/17 14:32 Last Vital Signs Temp Pulse Resp BP Pulse Ox 98 F 95 H 18 105/70 04/27/17 12:56 04/27/17 12:56 04/27/17 12:56 04/27/17 12:56 Laboratory Tests 04/23/17 04/24/17 04/24/17 12:00 06:00 06:00 WBC 13.9 H D RBC 4.56 Hgb 12.9 Hct 38.6 MCV 84.7 MCH 28.3 MCHC 33.4 RDW 13.7 Plt Count 207 MPV 10.3 Sodium 137 Potassium 3.8 Chloride 102 Carbon Dioxide 28 Anion Gap 7 L BUN 17 D Creatinine 1.3 D Creat Clearance w eGFR > 60 Random Glucose 90 Calcium 8.8 Total Bilirubin 1.3 H D AST 11 L ALT 21 D Alkaline Phosphatase 91 Total Protein 8.5 H Albumin 3.7 Urine Color Katerin Urine Appearance Slcloudy Urine pH 5.0 Ur Specific [place] 1.020 Urine Protein 1+ H Urine Glucose (UA) Negative Urine Ketones Negative Urine Blood Negative Urine Nitrite Negative Urine Bilirubin Negative Urine Urobilinogen Negative Ur Leukocyte Esterase 2+ H D Urine RBC 7 Urine WBC 44 Ur Epithelial Cells Few Hyaline Casts 174 Urine Mucus Many RPR Titer 04/24/17 04/24/17 06:00 22:00 WBC RBC Hgb Hct MCV MCH MCHC RDW Plt Count MPV Sodium Potassium Chloride Carbon Dioxide Anion Gap BUN Creatinine Creat Clearance w eGFR Random Glucose Calcium Total Bilirubin AST ALT Alkaline Phosphatase Total Protein Albumin Urine Color Straw Urine Appearance Clear Urine pH 6.0 Ur Specific [place] <= 1.005 Urine Protein Negative Urine Glucose (UA) Negative Urine Ketones Negative Urine Blood Negative Urine Nitrite Negative Urine Bilirubin Negative Urine Urobilinogen Negative Ur Leukocyte Esterase Negative Urine RBC Urine WBC Ur Epithelial Cells Hyaline Casts Urine Mucus RPR Titer Nonreactive Labs noted: wbc 13.9 c/o constipation (doesn't want citroma) Assessment: 04/27/17 14:33 Withdrawal symptoms Noted with leukocytosis acute constipation Plan: Continue detox Leukocytosis: repeat CBC in AM Constipation: dulcolax 10mg PO x 1 dose
[2017-04-27] MEDS ORDERED: BISACODYL 5 MG TABLET.DR (FP) PO ONE (15:45)
[2017-04-27] MEDS: THIAMINE HCL 100 MG TABLET (FP) PO SCH (22:03)
[2017-04-28] MEDS: hydrOXYzine PAMOATE 50 MG CAPSULE (FP) PO PRN ×2 (05:11→10:43)
[2017-04-28] MEDS ORDERED: METHADONE HCL 5 MG TABLET (FOR DETOX USE ONLY) PO ONE (06:00)
[2017-04-28 09:47] VITALS: BP 102/79; PULSE 76; TEMP 96.7
[2017-04-28 10:04] LABS: BASOPHIL 0.6 % (0-2.0); EOSINOPHIL 5.6 % (0-4.5); MCH 28.9 pg (25.7-33.7); MEAN CELL VOLUME 82.6 fl (80-96); MEAN PLT VOLUME 9.4 fl (7.5-11.1); PLATELET COUNT 219 K/MM3 (134-434); RDW 12.9 % (11.9-15.9); WHITE BLOOD COUNT 8.2 K/mm3 (4.0-10.0)
[2017-04-28] MEDS: DOCUSATE SODIUM 100 MG CAPSULE (FP) PO SCH (10:41)
[2017-04-28] MEDS: cloNIDine HCL 0.1 MG TABLET PO SCH (10:41)
[2017-04-28] MEDS: CYCLOBENZAPRINE HCL 10 MG TABLET (FP) PO PRN (10:41)
[2017-04-28] MEDS: PRENATAL VITAMINS W/ FOLIC ACID TABLET (FP) PO SCH (10:42)
[2017-04-28] MEDS: NICOTINE 21 MG/24 HOURS TOPICAL PATCH TD SCH (10:42)
--- NOTE | 2017-04-28 13:34 | DS ---
[facility] Detox Discharge Summary Admission Date: 04/23/17 Discharge Date: 04/28/17 - History Present History: Opioid Dependence Additional Comments: Patient going home at this time. Patient advised to follow-up with Outpatient aftercare (12-Step / NA Outpatient Programs) as directed. Pertinent Past History: Insomnia. - Physical Exam Results Vital Signs: Vital Signs Temperature 96.7 F L 04/28/17 09:46 Pulse Rate 76 04/28/17 09:46 Respiratory Rate 18 04/28/17 09:46 Blood Pressure 102/79 04/28/17 09:46 O2 Sat by Pulse Oximetry (%) Pertinent Admission Physical Exam Findings: WITHDRAWAL SYMPTOMS. Laboratory Tests 04/23/17 04/24/17 04/24/17 12:00 06:00 06:00 WBC 13.9 H D RBC 4.56 Hgb 12.9 Hct 38.6 MCV 84.7 MCH 28.3 MCHC 33.4 RDW 13.7 Plt Count 207 MPV 10.3 Neutrophils % Lymphocytes % Monocytes % Eosinophils % Basophils % Sodium 137 Potassium 3.8 Chloride 102 Carbon Dioxide 28 Anion Gap 7 L BUN 17 D Creatinine 1.3 D Creat Clearance w eGFR > 60 Random Glucose 90 Calcium 8.8 Total Bilirubin 1.3 H D AST 11 L ALT 21 D Alkaline Phosphatase 91 Total Protein 8.5 H Albumin 3.7 Urine Color Katerin Urine Appearance Slcloudy Urine pH 5.0 Ur Specific [place] 1.020 Urine Protein 1+ H Urine Glucose (UA) Negative Urine Ketones Negative Urine Blood Negative Urine Nitrite Negative Urine Bilirubin Negative Urine Urobilinogen Negative Ur Leukocyte Esterase 2+ H D Urine RBC 7 Urine WBC 44 Ur Epithelial Cells Few Hyaline Casts 174 Urine Mucus Many RPR Titer 04/24/17 04/24/17 04/28/17 06:00 22:00 06:30 WBC 8.2 D RBC 4.51 Hgb 13.0 Hct 37.2 MCV 82.6 MCH 28.9 MCHC 35.0 RDW 12.9 Plt Count 219 MPV 9.4 Neutrophils % 44.0 Lymphocytes % 42.6 H Monocytes % 7.2 Eosinophils % 5.6 H Basophils % 0.6 Sodium Potassium Chloride Carbon Dioxide Anion Gap BUN Creatinine Creat Clearance w eGFR Random Glucose Calcium Total Bilirubin AST ALT Alkaline Phosphatase Total Protein Albumin Urine Color Straw Urine Appearance Clear Urine pH 6.0 Ur Specific [place] <= 1.005 Urine Protein Negative Urine Glucose (UA) Negative Urine Ketones Negative Urine Blood Negative Urine Nitrite Negative Urine Bilirubin Negative Urine Urobilinogen Negative Ur Leukocyte Esterase Negative Urine RBC Urine WBC Ur Epithelial Cells Hyaline Casts Urine Mucus RPR Titer Nonreactive LABS NOTED. - Treatment Hospital Course: Detox Protocol Followed, Detoxed Safely, Responded well, Discharged Condition Good Patient has Accepted a Rehab Referral to: PT GOING HOME. 12-STEP/NA OUTPATIENT PROGRAMS RECOMMENDED FOR FOLLOW-UP. - Medication Discharge Medications: Ambulatory Orders NK [No Known Home Medication] 10/23/15 - Diagnosis (1) Opioid dependence with withdrawal Current Visit: Yes Status: Acute (2) Insomnia Current Visit: No Status: Chronic Qualifiers: Insomnia type: unspecified Qualified Code(s): G47.00 - Insomnia, unspecified (3) Obesity Current Visit: No Status: Chronic Qualifiers: Obesity type: unspecified obesity type (4) Cocaine abuse Current Visit: Yes Status: Chronic - AMA Did Patient Leave Against Medical Advice: No
== END 2017-04-28 12:54 | disposition other institution (70) | DRG 773 ==
LOC: YASAS 08:27 → Y3N 10:09
PROVIDERS: ADMIT Internal Medicine; ATTEND Internal Medicine
PROC: HZ2ZZZZ Detoxification Services for Substance Abuse Treatment (ICD-10-PCS; principal; 2017-04-28)
DX: F11.23 Opioid dependence with withdrawal (principal); F14.10 Cocaine abuse, uncomplicated; G47.00 Insomnia, unspecified; F17.210 Nicotine dependence, cigarettes, uncomplicated; E66.01 Morbid (severe) obesity due to excess calories; Z68.33 Body mass index [BMI] 33.0-33.9, adult
CPT/HCPCS: 36415; 80053; 81003; 81015; 85025; 85027; 86593; 87086; 93005; 93010

== ENCOUNTER 2017-04-28 13:11 | Inpatient (IN) | payer OTHER ==
--- NOTE | 2017-04-28 14:41 | HP ---
Psychiatrist Admission - Data Date of interview: 04/28/17 Admission source: 3N Identifying data: This is the first 5N inpatient rehabilitation admission for this 26 year old single without children male, who is domiciled and unemployed. Patient resides in the [place] apartment with his father and youngest brother. Medical History: Patient reports a good physical health,allergic to penicilllin , smokes cigarettes 1/2 PPD. Psychiatric History: Patient denies history of psychiatric treatment, reports he feels anxious "still withdrawing" and unable to sleep well at nights, states while home he takes Melatonin and it's helps with his insomnia. Physical/Sexual Abuse/Trauma History: Patient denies history of sexual, physical and verbal abuse. Allergies/Adverse Reactions: Allergies Allergy/AdvReac Type Severity Reaction Status Date / Time Penicillins Allergy Severe Hives Verified 04/23/17 09:58 Date of last physical exam: 04/23/17 Concur with the findings of this exam: Yes - Substance Abuse/Tx History Hx Alcohol Use: No Hx Substance Use: Yes Substance Use Type: Cocaine (Cocaine is also reported as being used sporadically ," once in a while ",via the intravenous route.Last use was 5 months ago (80 dollars on a single occasion).), Heroin (Patient reports use of heroin intravenously on a daily basis (3-5 bags)) Hx Substance Use Treatment: Yes ([facility] outpatient treatment program) - Admission Criteria Previous failed treatment: Yes Poor recovery environment: Yes Comorbidities: No Lacks judgement: Yes Mental Status Exam - Mental Status Exam Alert and Oriented to: Time, Place, Person Cognitive Function: Grossly Intact Patient Appearance: Well Groomed Mood: Anxious Affect: Appropriate, Mood Congruent Patient Behavior: Appropriate, Cooperative Speech Pattern: Clear, Appropriate Voice Loudness: Normal Thought Process: Goal Oriented Thought Disorder: Not Present Hallucinations: Denies Suicidal Ideation: Denies Homicidal Ideation: Denies Insight/Judgement: Fair Sleep: Poorly, Difficulty falling asleep Appetite: Good, Weight gain (10lbs) Muscle strength/Tone: Normal Gait/Station: Normal Psychiatric Findings - Problem List ([place] 1, 2,3) (1) Cocaine abuse Current Visit: No Status: Chronic Comment: History.Current Utox screen is negative for cocaine. 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
[2017-04-28] MEDS ORDERED: LOPERAMIDE HCL 2 MG CAPSULE PO PRN (15:30)
[2017-04-28] MEDS ORDERED: guaiFENesin/D-METHORPHAN HB 10 ML UNIT-DOSE CUPS PO PRN (15:30)
[2017-04-28] MEDS ORDERED: P-EPHED 60MG/TRIPROLIDI 2.5MG TABLET PO PRN (15:30)
[2017-04-28] MEDS ORDERED: MAGNESIUM CITRATE 300 ML BOTTLE PO PRN (15:30)
[2017-04-28] MEDS ORDERED: IBUPROFEN 400 MG TABLET (FP) PO PRN (15:30)
[2017-04-28] MEDS ORDERED: diphenhydrAMINE HCL 50 MG CAPSULE PO PRN (15:30)
[2017-04-28] MEDS ORDERED: MAG HYDROX/AL HYDROX/SIMETH 30 ML UNIT-DOSE CUP PO PRN (15:30)
[2017-04-28] MEDS ORDERED: hydrOXYzine PAMOATE 50 MG CAPSULE (FP) PO PRN (15:30)
[2017-04-28] MEDS ORDERED: MENTHOL/PHENOL 1 EACH UD MM PRN (15:30)
[2017-04-28] MEDS ORDERED: MAGNESIUM HYDROX 2400MG/30ML ORAL SUSPENSION 30 ML CUP PO PRN (15:30)
[2017-04-28] MEDS ORDERED: ACETAMINOPHEN 325 MG TABLET (FP) PO PRN (15:30)
--- NOTE | 2017-04-28 15:35 | HP ---
[facility] Rehab Assess/Revision - Admission History [facility]hab [facility] Date of Admission to Rehab: 04/28/17 - Findings Detox History & Physical reviewed: Yes Concur with findings: Yes Comments/Additional Findings: for rehab as protocol
[2017-04-28] MEDS: NICOTINE 21 MG/24 HOURS TOPICAL PATCH TD SCH (15:59)
[2017-04-28] MEDS: hydrOXYzine PAMOATE 50 MG CAPSULE (FP) PO PRN ×2 (17:52→23:37)
[2017-04-28] MEDS: THIAMINE HCL 100 MG TABLET (FP) PO SCH (21:20)
[2017-04-28] MEDS: HYDROCORTISONE ACETATE 25 MG/SUPP.RECT RC SCH (21:20)
[2017-04-29] MEDS: POLYETHYLENE GLYCOL 3350 119 GM BTL PO SCH (09:44)
[2017-04-29] MEDS: NICOTINE 21 MG/24 HOURS TOPICAL PATCH TD SCH (09:46)
[2017-04-29] MEDS: PRENATAL VITAMINS W/ FOLIC ACID TABLET (FP) PO SCH (09:47)
[2017-04-29] MEDS ORDERED: PNEUMOC 13-VAL CONJ-DIP CRM/PF 0.5 ML DISP.SYRIN IM ONE (12:00)
[2017-04-29] MEDS ORDERED: PNEUMOCOCCAL 23 VACCINE 0.5 ML VIAL IM ONE (12:00)
[2017-04-29] MEDS: hydrOXYzine PAMOATE 50 MG CAPSULE (FP) PO PRN ×3 (14:01→23:42)
[2017-04-29] MEDS: THIAMINE HCL 100 MG TABLET (FP) PO SCH (21:09)
[2017-04-29] MEDS: HYDROCORTISONE ACETATE 25 MG/SUPP.RECT RC SCH (21:09)
[2017-04-30] MEDS: hydrOXYzine PAMOATE 50 MG CAPSULE (FP) PO PRN ×4 (06:47→22:16)
[2017-04-30] MEDS: POLYETHYLENE GLYCOL 3350 119 GM BTL PO SCH (09:55)
[2017-04-30] MEDS: PRENATAL VITAMINS W/ FOLIC ACID TABLET (FP) PO SCH (09:55)
[2017-04-30] MEDS: NICOTINE 21 MG/24 HOURS TOPICAL PATCH TD SCH (09:55)
[2017-04-30] MEDS: HYDROCORTISONE ACETATE 25 MG/SUPP.RECT RC SCH (22:15)
[2017-04-30] MEDS: THIAMINE HCL 100 MG TABLET (FP) PO SCH (22:15)
[2017-05-01] MEDS: PRENATAL VITAMINS W/ FOLIC ACID TABLET (FP) PO SCH (09:54)
[2017-05-01] MEDS: hydrOXYzine PAMOATE 50 MG CAPSULE (FP) PO PRN ×3 (09:54→21:50)
[2017-05-01] MEDS: HYDROCORTISONE ACETATE 25 MG/SUPP.RECT RC SCH ×2 (09:54→21:50)
[2017-05-01] MEDS: NICOTINE 21 MG/24 HOURS TOPICAL PATCH TD SCH (09:55)
[2017-05-01] MEDS: POLYETHYLENE GLYCOL 3350 119 GM BTL PO SCH (09:55)
[2017-05-01] MEDS: THIAMINE HCL 100 MG TABLET (FP) PO SCH (21:47)
[2017-05-02] MEDS: hydrOXYzine PAMOATE 50 MG CAPSULE (FP) PO PRN ×3 (10:08→21:17)
[2017-05-02] MEDS: NICOTINE 21 MG/24 HOURS TOPICAL PATCH TD SCH (10:08)
[2017-05-02] MEDS: PRENATAL VITAMINS W/ FOLIC ACID TABLET (FP) PO SCH (10:08)
[2017-05-02] MEDS: HYDROCORTISONE ACETATE 25 MG/SUPP.RECT RC SCH ×2 (10:09→21:17)
[2017-05-02] MEDS: POLYETHYLENE GLYCOL 3350 119 GM BTL PO SCH (10:09)
--- NOTE | 2017-05-02 12:08 | PN ---
Psychiatric Progress Note Vital Signs: Vital Signs Period Temp Pulse Resp BP Sys/Moreno Pulse Ox Last 24 Hr 97.6 F 78 18-18 124/91 Date of Session: 05/02/17 Chief Complaint:: "nightmares" HPI: Patient is addressing opioid dependence, cocaine abuse, comorbid insomnia, opioid induced anxiety. Current Medications: Active Medications Generic Name Dose Route Start Last Admin Trade Name Freq PRN Reason Stop Dose Admin Acetaminophen 650 mg 04/28/17 15:30 Tylenol - PO Q4H PRN FEVER OR PAIN Al Hydroxide/Mg Hydroxide 30 ml 04/28/17 15:30 Mylanta Oral Suspension - PO Q6H PRN DYSPEPSIA Diphenhydramine HCl 50 mg 04/28/17 15:30 Benadryl - PO HSMR1 PRN FOR ITCHING Eucalyptus/Menthol/Phenol/Sorbitol 1 each 04/28/17 15:30 Cepastat Lozenge - MM Q4H PRN SORE THROAT Guaifenesin 10 ml 04/28/17 15:30 Robitussin Dm - PO Q6H PRN COUGH Hydrocortisone Acetate 25 mg 04/30/17 22:00 05/02/17 10:09 Anusol Hc Suppository - RC 25 mg BID STERLING Administration Hydroxyzine Pamoate 50 mg 04/28/17 14:28 05/02/17 10:08 Vistaril - PO 50 mg Q4H PRN Administration ANXIETY Hydroxyzine Pamoate 50 mg 04/28/17 15:30 04/29/17 09:47 Vistaril - PO 50 mg Q4H PRN Administration AGITATION Ibuprofen 400 mg 04/28/17 15:30 Motrin - PO Q6H PRN PAIN Loperamide HCl 4 mg 04/28/17 15:30 Imodium - PO Q6H PRN DIARRHEA Magnesium Hydroxide 30 ml 04/28/17 15:30 Milk Of Magnesia - PO DAILY PRN CONSTIPATION Melatonin 5 mg 04/28/17 14:27 Melatonin PO HS PRN INSOMNIA Nicotine 21 mg 04/28/17 15:44 05/02/17 10:08 Nicoderm Patch - TD 21 mg DAILY STER[place]ING Administration Polyethylene Glycol 17 gm 04/29/17 10:00 05/02/17 10:09 Miralax (For Daily Use) - PO 17 gm DAILY ST[place]ING Administration Multivit/Folic Acid/Iron 1 tab 04/29/17 10:00 05/02/17 10:08 Vitamins (Sjr) - PO 1 tab DAILY [place] Administration Pseudoephedrine/Triprolidine 1 combo 04/28/17 15:30 Actifed - PO TID PRN NASAL CONGESTION Thiamine HCl 100 mg 04/28/17 22:00 05/01/17 21:47 Vitamin B1 - PO 100 mg HS STERLING Administration Medication(s) Change(s): add Sinequan 25 mg po hs. Current Side Effect: No Lab tests ordered: No Lab tests reviewed: Yes Provider note:: Patient reports he has a nightmarre, nighterrors, reports he has it time to time, but experiencing more friquently while in rehabilitation treatment, processed with the patient feelings/thoughts related to this. Patient verbalized understanding the negative conseuqneses of his addiction and focused on his aftercare plans. Discussed indications and properties of Sinequan 25 mg, patient agreed to start. Total face to face time:: 35 Mental Status Exam - Mental Status Exam Alert and Oriented to: Time, Place, Person Cognitive Function: Grossly Intact Patient Appearance: Well Groomed Mood: Anxious Affect: Appropriate, Mood Congruent Patient Behavior: Appropriate, Cooperative Speech Pattern: Clear, Appropriate Voice Loudness: Normal Thought Process: Intact, Goal Oriented Thought Disorder: Not Present Hallucinations: Denies Suicidal Ideation: Denies Homicidal Ideation: Denies Insight/Judgement: Good Sleep: Poorly, Difficulty falling asleep Appetite: Fair Muscle strength/Tone: Normal Gait/Station: Normal Psychiatric Treatment Plan - Problem List (1) Cocaine abuse Current Visit: No Comment: History.Current Utox screen is negative for cocaine. 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
[2017-05-02] MEDS: THIAMINE HCL 100 MG TABLET (FP) PO SCH (21:17)
[2017-05-02] MEDS: DOXEPIN HCL 25 MG CAPSULE PO SCH (21:17)
[2017-05-02] MEDS ORDERED: DOXEPIN HCL 10 MG CAPSULE PO SCH (22:00)
[2017-05-03] MEDS: NICOTINE 21 MG/24 HOURS TOPICAL PATCH TD SCH (10:08)
[2017-05-03] MEDS: PRENATAL VITAMINS W/ FOLIC ACID TABLET (FP) PO SCH (10:08)
[2017-05-03] MEDS: POLYETHYLENE GLYCOL 3350 119 GM BTL PO SCH (10:09)
[2017-05-03] MEDS: HYDROCORTISONE ACETATE 25 MG/SUPP.RECT RC SCH ×2 (10:09→21:26)
[2017-05-03] MEDS: hydrOXYzine PAMOATE 50 MG CAPSULE (FP) PO PRN (21:26)
[2017-05-03] MEDS: DOXEPIN HCL 25 MG CAPSULE PO SCH (21:26)
[2017-05-03] MEDS: THIAMINE HCL 100 MG TABLET (FP) PO SCH (21:27)
[2017-05-04] MEDS: POLYETHYLENE GLYCOL 3350 119 GM BTL PO SCH (10:04)
[2017-05-04] MEDS: PRENATAL VITAMINS W/ FOLIC ACID TABLET (FP) PO SCH (10:04)
[2017-05-04] MEDS: NICOTINE 21 MG/24 HOURS TOPICAL PATCH TD SCH (10:05)
[2017-05-04] MEDS: HYDROCORTISONE ACETATE 25 MG/SUPP.RECT RC SCH ×2 (10:05→21:27)
[2017-05-04] MEDS: hydrOXYzine PAMOATE 50 MG CAPSULE (FP) PO PRN (21:27)
[2017-05-04] MEDS: THIAMINE HCL 100 MG TABLET (FP) PO SCH (21:27)
[2017-05-04] MEDS: DOXEPIN HCL 25 MG CAPSULE PO SCH (21:27)
[2017-05-05] MEDS: PRENATAL VITAMINS W/ FOLIC ACID TABLET (FP) PO SCH (10:01)
[2017-05-05] MEDS: HYDROCORTISONE ACETATE 25 MG/SUPP.RECT RC SCH ×2 (10:01→21:47)
[2017-05-05] MEDS: POLYETHYLENE GLYCOL 3350 119 GM BTL PO SCH (10:02)
[2017-05-05] MEDS: NICOTINE 21 MG/24 HOURS TOPICAL PATCH TD SCH (10:02)
[2017-05-05] MEDS: hydrOXYzine PAMOATE 50 MG CAPSULE (FP) PO PRN (21:46)
[2017-05-05] MEDS: DOXEPIN HCL 25 MG CAPSULE PO SCH (21:46)
[2017-05-05] MEDS: THIAMINE HCL 100 MG TABLET (FP) PO SCH (21:46)
[2017-05-06] MEDS: NICOTINE 21 MG/24 HOURS TOPICAL PATCH TD SCH (10:02)
[2017-05-06] MEDS: HYDROCORTISONE ACETATE 25 MG/SUPP.RECT RC SCH ×2 (10:02→21:29)
[2017-05-06] MEDS: PRENATAL VITAMINS W/ FOLIC ACID TABLET (FP) PO SCH (10:02)
[2017-05-06] MEDS: POLYETHYLENE GLYCOL 3350 119 GM BTL PO SCH (10:02)
[2017-05-06] MEDS: THIAMINE HCL 100 MG TABLET (FP) PO SCH (21:29)
[2017-05-06] MEDS: DOXEPIN HCL 25 MG CAPSULE PO SCH (21:29)
[2017-05-06] MEDS: MELATONIN 5 MG TABLETS PO PRN (21:30)
[2017-05-06] MEDS: hydrOXYzine PAMOATE 50 MG CAPSULE (FP) PO PRN (21:30)
[2017-05-07] MEDS: POLYETHYLENE GLYCOL 3350 119 GM BTL PO SCH (09:52)
[2017-05-07] MEDS: PRENATAL VITAMINS W/ FOLIC ACID TABLET (FP) PO SCH (09:52)
[2017-05-07] MEDS: HYDROCORTISONE ACETATE 25 MG/SUPP.RECT RC SCH ×2 (09:52→21:27)
[2017-05-07] MEDS: NICOTINE 21 MG/24 HOURS TOPICAL PATCH TD SCH (09:52)
[2017-05-07] MEDS: hydrOXYzine PAMOATE 50 MG CAPSULE (FP) PO PRN (21:27)
[2017-05-07] MEDS: THIAMINE HCL 100 MG TABLET (FP) PO SCH (21:27)
[2017-05-07] MEDS: DOXEPIN HCL 25 MG CAPSULE PO SCH (21:27)
[2017-05-07] MEDS: MELATONIN 5 MG TABLETS PO PRN (21:29)
[2017-05-08] MEDS: PRENATAL VITAMINS W/ FOLIC ACID TABLET (FP) PO SCH (10:07)
[2017-05-08] MEDS: POLYETHYLENE GLYCOL 3350 119 GM BTL PO SCH (10:07)
[2017-05-08] MEDS: HYDROCORTISONE ACETATE 25 MG/SUPP.RECT RC SCH ×2 (10:07→21:41)
[2017-05-08] MEDS: NICOTINE 21 MG/24 HOURS TOPICAL PATCH TD SCH (10:08)
[2017-05-08] MEDS: DOXEPIN HCL 25 MG CAPSULE PO SCH (21:40)
[2017-05-08] MEDS: THIAMINE HCL 100 MG TABLET (FP) PO SCH (21:40)
[2017-05-08] MEDS: hydrOXYzine PAMOATE 50 MG CAPSULE (FP) PO PRN (21:41)
[2017-05-08] MEDS: MELATONIN 5 MG TABLETS PO PRN (21:41)
[2017-05-09] MEDS: PRENATAL VITAMINS W/ FOLIC ACID TABLET (FP) PO SCH (10:19)
[2017-05-09] MEDS: HYDROCORTISONE ACETATE 25 MG/SUPP.RECT RC SCH ×2 (10:20→22:55)
[2017-05-09] MEDS: POLYETHYLENE GLYCOL 3350 119 GM BTL PO SCH (10:20)
[2017-05-09] MEDS: NICOTINE 21 MG/24 HOURS TOPICAL PATCH TD SCH (10:20)
[2017-05-09] MEDS: hydrOXYzine PAMOATE 50 MG CAPSULE (FP) PO PRN (21:50)
[2017-05-09] MEDS: DOXEPIN HCL 25 MG CAPSULE PO SCH (21:50)
[2017-05-09] MEDS: THIAMINE HCL 100 MG TABLET (FP) PO SCH (21:50)
[2017-05-10] MEDS: POLYETHYLENE GLYCOL 3350 119 GM BTL PO SCH (10:04)
[2017-05-10] MEDS: PRENATAL VITAMINS W/ FOLIC ACID TABLET (FP) PO SCH (10:04)
[2017-05-10] MEDS: HYDROCORTISONE ACETATE 25 MG/SUPP.RECT RC SCH ×2 (10:04→21:40)
[2017-05-10] MEDS: NICOTINE 21 MG/24 HOURS TOPICAL PATCH TD SCH (10:04)
[2017-05-10] MEDS: hydrOXYzine PAMOATE 50 MG CAPSULE (FP) PO PRN (21:39)
[2017-05-10] MEDS: DOXEPIN HCL 25 MG CAPSULE PO SCH (21:39)
[2017-05-10] MEDS: THIAMINE HCL 100 MG TABLET (FP) PO SCH (21:39)
[2017-05-11] MEDS: HYDROCORTISONE ACETATE 25 MG/SUPP.RECT RC SCH ×2 (10:10→21:42)
[2017-05-11] MEDS: POLYETHYLENE GLYCOL 3350 119 GM BTL PO SCH (10:10)
[2017-05-11] MEDS: PRENATAL VITAMINS W/ FOLIC ACID TABLET (FP) PO SCH (10:10)
[2017-05-11] MEDS: NICOTINE 21 MG/24 HOURS TOPICAL PATCH TD SCH (10:10)
[2017-05-11] MEDS: THIAMINE HCL 100 MG TABLET (FP) PO SCH (21:42)
[2017-05-11] MEDS: DOXEPIN HCL 25 MG CAPSULE PO SCH (21:42)
[2017-05-11] MEDS: hydrOXYzine PAMOATE 50 MG CAPSULE (FP) PO PRN (21:42)
[2017-05-12] MEDS: NICOTINE 21 MG/24 HOURS TOPICAL PATCH TD SCH (10:10)
[2017-05-12] MEDS: PRENATAL VITAMINS W/ FOLIC ACID TABLET (FP) PO SCH (10:10)
[2017-05-12] MEDS: HYDROCORTISONE ACETATE 25 MG/SUPP.RECT RC SCH ×2 (10:10→21:36)
[2017-05-12] MEDS: POLYETHYLENE GLYCOL 3350 119 GM BTL PO SCH (10:11)
[2017-05-12] MEDS: DOXEPIN HCL 25 MG CAPSULE PO SCH (21:36)
[2017-05-12] MEDS: THIAMINE HCL 100 MG TABLET (FP) PO SCH (21:36)
[2017-05-12] MEDS: MELATONIN 5 MG TABLETS PO PRN (21:37)
[2017-05-12] MEDS: hydrOXYzine PAMOATE 50 MG CAPSULE (FP) PO PRN (21:37)
[2017-05-13] MEDS: PRENATAL VITAMINS W/ FOLIC ACID TABLET (FP) PO SCH (10:55)
[2017-05-13] MEDS: POLYETHYLENE GLYCOL 3350 119 GM BTL PO SCH (10:55)
[2017-05-13] MEDS: HYDROCORTISONE ACETATE 25 MG/SUPP.RECT RC SCH ×2 (10:56→21:47)
[2017-05-13] MEDS: NICOTINE 21 MG/24 HOURS TOPICAL PATCH TD SCH (10:56)
[2017-05-13] MEDS: DOXEPIN HCL 25 MG CAPSULE PO SCH (21:47)
[2017-05-13] MEDS: hydrOXYzine PAMOATE 50 MG CAPSULE (FP) PO PRN (21:47)
[2017-05-13] MEDS: THIAMINE HCL 100 MG TABLET (FP) PO SCH (21:47)
[2017-05-13] MEDS: MELATONIN 5 MG TABLETS PO PRN (21:48)
[2017-05-14] MEDS: POLYETHYLENE GLYCOL 3350 119 GM BTL PO SCH (10:11)
[2017-05-14] MEDS: NICOTINE 21 MG/24 HOURS TOPICAL PATCH TD SCH (10:12)
[2017-05-14] MEDS: PRENATAL VITAMINS W/ FOLIC ACID TABLET (FP) PO SCH (10:12)
[2017-05-14] MEDS: HYDROCORTISONE ACETATE 25 MG/SUPP.RECT RC SCH ×2 (10:12→21:39)
[2017-05-14] MEDS: DOXEPIN HCL 25 MG CAPSULE PO SCH (21:39)
[2017-05-14] MEDS: hydrOXYzine PAMOATE 50 MG CAPSULE (FP) PO PRN (21:39)
[2017-05-14] MEDS: THIAMINE HCL 100 MG TABLET (FP) PO SCH (21:39)
[2017-05-15 07:35] VITALS: BP 138/79; PULSE 79; TEMP 97.5
[2017-05-15] MEDS: PRENATAL VITAMINS W/ FOLIC ACID TABLET (FP) PO SCH (10:03)
[2017-05-15] MEDS: POLYETHYLENE GLYCOL 3350 119 GM BTL PO SCH (10:03)
[2017-05-15] MEDS: NICOTINE 21 MG/24 HOURS TOPICAL PATCH TD SCH (10:04)
[2017-05-15] MEDS: HYDROCORTISONE ACETATE 25 MG/SUPP.RECT RC SCH (10:04)
--- NOTE | 2017-05-15 11:22 | PN ---
Psychiatric Progress Note Vital Signs: Vital Signs Period Temp Pulse Resp BP Sys/Moreno Pulse Ox Last 24 Hr 97.5 F 79 16-18 138/79 Date of Session: 05/15/17 Chief Complaint:: discharge visit HPI: Patient is addressing opioid dependence, cocaine abuse, comorbid insomnia, opioid induced anxiety. ROS: WNL Current Medications: Active Medications Generic Name Dose Route Start Last Admin Trade Name Freq PRN Reason Stop Dose Admin Acetaminophen 650 mg 04/28/17 15:30 Tylenol - PO Q4H PRN FEVER OR PAIN Al Hydroxide/Mg Hydroxide 30 ml 04/28/17 15:30 Mylanta Oral Suspension - PO Q6H PRN DYSPEPSIA Diphenhydramine HCl 50 mg 04/28/17 15:30 Benadryl - PO HSMR1 PRN FOR ITCHING Doxepin HCl 25 mg 05/02/17 22:00 05/14/17 21:39 Sinequan - PO 25 mg HS STER[place]ING Administration Eucalyptus/Menthol/Phenol/Sorbitol 1 each 04/28/17 15:30 Cepastat Lozenge - MM Q4H PRN SORE THROAT Guaifenesin 10 ml 04/28/17 15:30 Robitussin Dm - PO Q6H PRN COUGH Hydrocortisone Acetate 25 mg 04/30/17 22:00 05/14/17 21:39 Anusol Hc Suppository - RC Not Given BID [place] Hydroxyzine Pamoate 50 mg 04/28/17 14:28 05/14/17 21:39 Vistaril - PO 50 mg Q4H PRN Administration ANXIETY Hydroxyzine Pamoate 50 mg 04/28/17 15:30 04/29/17 09:47 Vistaril - PO 50 mg Q4H PRN Administration AGITATION Ibuprofen 400 mg 04/28/17 15:30 Motrin - PO Q6H PRN PAIN Loperamide HCl 4 mg 04/28/17 15:30 Imodium - PO Q6H PRN DIARRHEA Magnesium Hydroxide 30 ml 04/28/17 15:30 Milk Of Magnesia - PO DAILY PRN CONSTIPATION Melatonin 5 mg 04/28/17 14:27 05/13/17 21:48 Melatonin PO 5 mg HS PRN Administration INSOMNIA Nicotine 21 mg 04/28/17 15:44 05/14/17 10:12 Nicoderm Patch - TD Not Given DAILY [place] Polyethylene Glycol 17 gm 04/29/17 10:00 05/14/17 10:11 Miralax (For Daily Use) - PO 17 gm DAILY [place] Administration Multivit/Folic Acid/Iron 1 tab 04/29/17 10:00 05/14/17 10:12 Vitamins (Sjr) - PO 1 tab DAILY [place] Administration Pseudoephedrine/Triprolidine 1 combo 04/28/17 15:30 Actifed - PO TID PRN NASAL CONGESTION Thiamine HCl 100 mg 04/28/17 22:00 05/14/17 21:39 Vitamin B1 - PO 100 mg HS STER[place]ING Administration Current Side Effect: No Lab tests ordered: No Lab tests reviewed: Yes Provider note:: Patient has completed today his treatment and met his goals, will continue to address his issues at [facility] outpatient treatment program, he gained insights into his addiction and verbalized resolution to stay away from drugs, he focused on improtnace of utilization all supports availlable to prevent relapses. Medications(Sinequen and Vistaril) well tolareted, patient reports he sleeps better and less anxious, denies having nightmares, ("just regular dreams")no side-effects reported, scripts provided, patient is stable for discharge today. Total face to face time:: 35 Mental Status Exam - Mental Status Exam Alert and Oriented to: Time, Place, Person Cognitive Function: Good Patient Appearance: Well Groomed Mood: Hopeful Affect: Appropriate, Mood Congruent Patient Behavior: Appropriate, Cooperative Speech Pattern: Clear, Appropriate Voice Loudness: Normal Thought Process: Intact, Goal Oriented Thought Disorder: Not Present Hallucinations: Denies Suicidal Ideation: Denies Homicidal Ideation: Denies Insight/Judgement: Fair Sleep: Fair Appetite: Good Muscle strength/Tone: Normal Gait/Station: Normal Psychiatric Treatment Plan - Problem List (1) Cocaine abuse Comment: History.Current Utox screen is negative for cocaine. (2) Insomnia Qualifiers: Insomnia type: unspecified Qualified Code(s): G47.00 - Insomnia, unspecified
== END 2017-05-15 10:45 | disposition home or self-care (01) | DRG 772 ==
LOC: YASAS 13:11 → Y5N 13:12
PROVIDERS: ADMIT Psychiatry & Neurology Psychiatry; ATTEND Psychiatry & Neurology Psychiatry
PROC: HZ42ZZZ Group Counseling for Substance Abuse Treatment, Cognitive-Behavioral (ICD-10-PCS; principal; 2017-04-28)
DX: F11.20 Opioid dependence, uncomplicated (principal); F11.288 Opioid dependence with other opioid-induced disorder; F14.10 Cocaine abuse, uncomplicated; F17.210 Nicotine dependence, cigarettes, uncomplicated; G47.00 Insomnia, unspecified; Z88.0 Allergy status to penicillin
CPT/HCPCS: 90732; G0009